=== PATIENT | male | born 1945 | race Caucasian/White ===

== ENCOUNTER 2021-03-08 11:00 | Outpatient (CLI) | payer MEDICARE, MEDICAID, SELFPAY ==
--- NOTE | 2021-03-08 11:18 | MR_ITS ---
WS: [id number] MRI HEAD WITHOUT CONTRAST WITH ATTENTION TO THE INTERNAL AUDITORY CANALS TECHNIQUE: Sagittal T1, T2 axial, T2 axial flair, axial susceptibility weighted imaging, axial diffus ion weighted images, and coronal T2 images were obtained. Pre T1 axial and T1 coronal images. ADC lauren ges.Axial and coronal fiesta imaging. Contrast not administered. Patient refused contrast. CLINICAL INFORMATION: SENSORINEURAL HEARING LOSS BILATERAL;SUDDEN IDIOPATHIC COMPARISON: FINDINGS: Patient refused gadolinium contrast. Small focus of restricted diffusion in the left basal ganglia consistent with small focus of acute is chemia measuring 7 mm. Small amount of edema in this location. No other foci of restricted diffusion. Small amount of T2 shine through in the left centrum semiovale Mild to moderate small vessel changes. Moderate parenchymal volume loss. 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 Normal posterior fossa. Normal vascular flow voids at the skull base. No ext ra-axial fluid collections. Partial opacification of the right mastoid air cells. Paranasal sinuses a nd left mastoid air cells well aerated. Tiny punctate focus of hemosiderin in the left parietal lobe. Proximal 7th and 8th cranial nerves are normal in appearance. Normal cavernous sinuses. Normal trigem inal nerve root entry zones. Noncontrast IACs are normal in appearance.. Ventricular system and basal cisterns are patent. MR/MR iac's wo con [id number] IMPRESSION: 1. Small 7 mm focus of acute ischemia in the left basal ganglia with a tiny am ount of edema. 2. No other foci of acute ischemia. 3. Mild to moderate small vessel changes with moderate parenchymal volume loss . 4. Chronic lacunar infarct right denson radiata. 5. Noncontrast 7th and 8th proximal cranial nerves are normal in appearance. N ormal noncontrast IACs. 6. Partial opacification right mastoid air cells. Left mastoid air cells are w ell aerated. 7. Paranasal sinuses well aerated.
== END 2021-03-08 11:01 | disposition home or self-care (01) ==
PROVIDERS: PCP Student in an Organized Health Care Education/Training Program; Visit Provider Otolaryngology
DX: H90.3 Sensorineural hearing loss, bilateral (principal); I67.82 Cerebral ischemia; I63.9 Cerebral infarction, unspecified
CPT/HCPCS: 70551